=== PATIENT | male | born 1960 | race Caucasian/White ===

== ENCOUNTER → 2018-01-14 | Outpatient (CLI) | payer BC ==
--- NOTE | 2018-01-14 21:15 | CT ---
EXAMINATION TYPE: CT abdomen pelvis wo con DATE OF EXAM: 01/14/2018 COMPARISON: NONE HISTORY: 57-year-old male calculus of kidney with calculus of ureter, Right flank pain CT DLP: 247.1 mGycm. Automated exposure control for dose reduction was used. TECHNIQUE: Contiguous axial scanning of the abdomen and pelvis without IV contrast. Coronal and sagit colt reconstructions performed. FINDINGS: Heart normal size without pericardial effusion. Tiny hiatal hernia. Lung bases clear without pleural effusion. Liver is upper limits of normal in size at 17.5 cm. Otherwise, noncontrast appearance of the liver, g allbladder, adrenal glands, spleen, and pancreas show no gross abnormality. There is an extrarenal pelvis on the left versus parapelvic cysts. A 3 and 2 mm calcification within the lower pole are nonobstructive. There is mild right-sided hydroureter nephrosis and hydroureter with a 4 mm calculus at the right ure teral orifice protruding into the bladder lumen. No dilated small bowel, free fluid, or free air. No mesenteric or retroperitoneal lymphadenopathy. Normal appendix. There is scattered mild to moderate stool. Some focal 2.3 cm nonspecific inflammatio n and fat stranding along the right lateral aspect of the ascending colon is noted and could relate t o the epiploic appendage or inflammation in the omentum. Bladder incompletely distended. Pelvic phleboliths. Prostate gland measures 5.0 cm wide. No abnormal fluid collection in the pelvis or pelvic lymphadenopathy. Bones: Bone islands in the lateral right femur. Degenerative changes at both hips secondary to chroni c femoral acetabular impingement syndrome. Additional degenerative changes at the SI joints with brid ging ankylosis and multilevel degenerative disc disease throughout the lumbar spine. IMPRESSION: 1. A 4 mm calculus at the right ureteral orifice with mild obstructive uropathy. 2. A couple nonobstructive calculi in the left kidney measuring up to 3 mm. 3. A focal 2.3 cm area of inflammation within the fat adjacent to the right lateral aspect of the as cending colon is nonspecific and could relate to epiploic appendagitis or inflammation in the omentum . Possibly incidental. Correlate as to if this finding may be symptomatic. 4. Prostatomegaly (5.0 cm wide).
== END | disposition home or self-care (01) ==
LOC: RADCTMAIN 17:17
PROVIDERS: ATTEND Family Medicine
DX: N20.0 Calculus of kidney (principal); N13.9 Obstructive and reflux uropathy, unspecified; N40.0 Benign prostatic hyperplasia without lower urinary tract symptoms; K63.89 Other specified diseases of intestine
CPT/HCPCS: 74176

== ENCOUNTER → 2018-06-17 | Outpatient (CLI) | payer BC ==
[2018-06-17 13:57] LABS: Basophils % (A) 1 %; Eosinophils # (A) 0.2 k/uL (0-0.7); Eosinophils % (A) 3 %; HCT 44.8 % (39.0-53.0); HGB 15.2 gm/dL (13.0-17.5); Lymphocytes # (A) 1.5 k/uL (1.0-4.8); Lymphocytes % (A) 28 %; MCH 30.4 pg (25.0-35.0); MCV 89.5 fL (80.0-100.0); Mean Platelet Volume 7.7; Monocytes # (A) 0.3 k/uL (0-1.0); Monocytes % (A) 6 %; Neutrophils # (A) 3.2 k/uL (1.3-7.7); Neutrophils % (A) 61 %; Platelet Count 212 k/uL (150-450); RDW 12.8 % (11.5-15.5); WBC 5.3 k/uL (3.8-10.6)
[2018-06-17 14:44] LABS: Erythrocyte Sedimentation Rate 5 mm/hr (0-15)
[2018-06-17 18:18] LABS: Rheumatoid Factor 11 IU/mL (0-15)
[2018-06-17 18:20] LABS: Albumin 4.4 g/dL (3.80-4.90); Albumin/Globulin Ratio 1.91 (1.20-2.10); Anion Gap 5.1 mmol/L (4.00-12.00); Calcium 9.4 mg/dL (8.7-10.3); Carbon Dioxide 31.9 mmol/L (21.6-31.8); Globulin 2.3 g/dL (2.1-3.7); Potassium 4.4 mmol/L (3.5-5.5); Total Bilirubin 0.6 mg/dL (0.3-1.2); Total Protein 6.7 g/dL (6.2-8.2)
[2018-06-17 18:21] LABS: LDL Cholesterol,Calculated 124.6 mg/dL (0.0-131.0); VLDL Calculation 18.4 mg/dL (5.00-40.00)
[2018-06-17 19:00] LABS: Gliadin AB IgA, Unit 2.4 U/mL
[2018-06-17 19:50] LABS: Hepatitis A Ab, Total Reactive (Non-Reactive)
[2018-06-18 11:43] LABS: ANA Pattern Speckled
== END ==
LOC: LABWHC1 12:45
PROVIDERS: ATTEND Family Medicine
DX: Z00.00 Encounter for general adult medical examination without abnormal findings (principal); R10.9 Unspecified abdominal pain; M25.50 Pain in unspecified joint; Z12.5 Encounter for screening for malignant neoplasm of prostate
CPT/HCPCS: 36415; 80053; 80061; 83516; 84153; 84443; 85025; 85652; 86038; 86039; 86431; 86706; 86708; 87340

== ENCOUNTER → 2023-08-20 | Outpatient (CLI) | payer BC ==
--- NOTE | 2023-08-20 22:07 | MR ---
EXAMINATION TYPE: MR shoulder LT wo con DATE OF EXAM: 08/20/2023 COMPARISON: Prior MRI left shoulder November 23, 2013 HISTORY: Left shoulder pain when raising arm over his head x2 years TECHNIQUE: Multiplanar, multisequence imaging of the left shoulder is performed without contrast. FINDINGS: Rotator Cuff: Some increased signal along the distal supraspinatus and infraspinatus tendons. Subscap ularis tendon intact. Rotator cuff muscle bulk preserved. Acromioclavicular Joint: Moderate to severe narrowing with moderate spurring and capsular hypertrophy along with subchondral cystic change. Loss of underlying fat plane on sagittal image 14. Glenohumeral Joint: Small sized joint effusion. No significant spurring. Subchondral cystic change in ferior osseous glenoid is new from prior. Labrum: Heterogeneous increased signal superior labrum consistent with degenerative tearing is redemo nstrated. Biceps Tendon: The long head of biceps is in normal location within bicipital groove. Increased signa l involving the intracapsular portion noted for reference sagittal image 14. Bone marrow signal: No focal abnormal marrow signal is appreciated. Other: No additional significant abnormality is appreciated. IMPRESSION: 1. Increasing moderate to advanced degenerative changes in the left shoulder as detailed above from 2 014 MRI. Impingement once again suspected. Correlate clinically. 2. Partial tearing of the long head of biceps tendon more prominent from prior. 3. Degenerative superior labral tear redemonstrated. 4. Mild tendinosis of the supraspinatus and infraspinatus tendons.
== END | disposition home or self-care (01) ==
LOC: RADMRIMAIN 17:44
PROVIDERS: ATTEND Family Medicine
DX: M67.814 Other specified disorders of tendon, left shoulder (principal); M19.012 Primary osteoarthritis, left shoulder; M75.112 Incomplete rotator cuff tear or rupture of left shoulder, not specified as traumatic; S46.002D Unspecified injury of muscle(s) and tendon(s) of the rotator cuff of left shoulder, subsequent encounter; X58.XXXD Exposure to other specified factors, subsequent encounter